=== PATIENT | male | born 1970 | race Caucasian/White ===

== ENCOUNTER 2018-03-18 11:01 | Emergency (ER) | payer OTHER ==
[2018-03-18 11:23] VITALS: BP 154/100; PULSE 105; TEMP 98; BMI 33.6
[2018-03-18] MEDS ORDERED: KETOROLAC TROMETHAMINE 60 MG/2 ML VIAL IM ONE (11:40)
--- NOTE | 2018-03-18 11:40 | PDOC ---
History of Present Illness - General Chief Complaint: Injury Stated Complaint: SHOULDER PAIN Time Seen by Provider: 03/18/18 11:25 History Source: Patient Exam Limitations: No Limitations - History of Present Illness Initial Comments: CHIEF COMPLAINT: 47 y/o male c/o left shoulder pain x 4 days. 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 His left shoulder had to hold up his entire body weight. He has been icing it. He denies numbness/tingling, head trauma, LOC and all other symptoms. He states it's hard to put his shirt on. Vital signs on arrival are notable for pulse of 105. REVIEW OF SYSTEMS: GENERAL/CONSTITUTIONAL: No fever/chills. No weakness. No weight change. MUSCULOSKELETAL: +left shoulder pain. No neck or back pain. SKIN: No rash or easy bruising. NEUROLOGIC: No headache, vertigo, loss of consciousness, or loss of sensation. PHYSICAL EXAM: VITAL_SIGNS: within normal limits GENERAL_APPEARANCE: alert, cooperative, no obvious discomfort. MENTAL_STATUS: speech clear, oriented X 3, responds appropriately to questions. NEURO: motor intact and sensory intact in injured extremity. EXTREMITIES: good pulse in injured extremity. No obvious deformities of left shoulder and clavicle. No tenting of left clavicle. TTP of left AC joint. Patient cannot abduct his left arm > 75 degrees. Cannot move left hand above shoulder or behind back. SKIN: warm, dry, good color. Past History - Past Medical History Allergies/Adverse Reactions: Allergies Allergy/AdvReac Type Severity Reaction Status Date / Time No Known Allergies Allergy Verified 03/18/18 11:20 Home Medications: Ambulatory Orders Naproxen [Naprosyn -] 500 mg PO BID #30 tablet 08/30/13 No Home Medications 0 dose .ROUTE UTDICT 08/30/13 Ibuprofen 600 mg PO TID #20 tablet 03/18/18 COPD: No CHF: No HTN: Yes Hypercholesterolemia: Yes - Suicide/Smoking/Psychosocial Hx Smoking History: Never smoked Have you smoked in the past 12 months: No Information on smoking cessation initiated: No Hx Alcohol Use: No Drug/Substance Use Hx: No Substance Use Type: None *Physical Exam - Vital Signs Last Vital Signs Temp Pulse Resp BP Pulse Ox 98 F 105 H 18 154/100 100 03/18/18 11:20 03/18/18 11:20 03/18/18 11:20 03/18/18 11:20 03/18/18 11:20 Medical Decision Making - Medical Decision Making A/P: 47 y/o male with left rotator cuff injury. Plan is as follows: 1. IM toradol Patient will be discharged to home with rx for ibuprofen and supportive care instructions. Instructed him to call Dr. Zavala on Monday to make follow up appointment and walk his left hand up a wall 4-5 times per day to prevent frozen shoulder. The patient verbalizes understanding of all instructions, has no further questions and is awaiting discharge. *DC/Admit/Observation/Transfer Diagnosis at time of Disposition: Rotator cuff strain Qualifiers: Encounter type: initial encounter Laterality: left Qualified Code(s): S46.012A - Strain of muscle(s) and tendon(s) of the rotator cuff of left shoulder, initial encounter - Discharge Dispostion Disposition: HOME Condition at time of disposition: Good - Referrals Referrals: David Zavala MD [Staff Physician] - (Call Monday to schedule follow up appointment) - Patient Instructions Printed Discharge Instructions: DI for Rotator Cuff Injury, How To Perform RICE (Rest, Ice, Compress, Elevate) Additional Instructions: Discharge Instructions: -You have a rotator cuff injury -Please alternate between ice and a heating pad -A prescription for pain medication has been sent to your pharmacy -Please call Dr. Zavala on Monday and schedule a follow up appointment -Walk your left hand up a wall 4-5 times a day to prevent frozen shoulder Instrucciones de descarga: -Usted tiene jerica lesin en el manguito rotador -Por favor alterne entre el hielo y jerica almohadilla trmica. -Jerica receta para medicamentos para el dolor melchor sido enviada a [place] farmacia -Por favor, llame al Dr. Zavala el kathe y programe jerica min de seguimiento - Camine beckwith mano [place] por jerica pared 4-5 veces al da para evitar el hombro congelado Print Language: LUXEMBOURGER - Post Discharge Activity Forms/Work/School Notes: Back to Work
[2018-03-18] MEDS ORDERED: KETOROLAC TROMETHAMINE 60 MG/2 ML VIAL ONE (11:43)
== END 2018-03-18 12:01 | disposition home or self-care (01) ==
LOC: JERFT 11:01
PROC: 3E0233Z Introduction of Anti-inflammatory into Muscle, Percutaneous Approach (ICD-10-PCS; principal; 2018-03-18)
DX: S46.012A Strain of muscle(s) and tendon(s) of the rotator cuff of left shoulder, initial encounter (principal); W14.XXXA Fall from tree, initial encounter; Y93.H2 Activity, gardening and landscaping; Y92.89 Other specified places as the place of occurrence of the external cause; Y99.0 Civilian activity done for income or pay
CPT/HCPCS: 99281-25

== ENCOUNTER 2021-08-11 08:41 | Day surgery (SDC) | payer BC, OTHER ==
[2021-08-10 09:00] VITALS: BMI 32.5
[2021-08-11] MEDS ORDERED: BSS (NA/CA/MG/K) BALANCED SALT SOLUTION OPHTH SOLN 15 ML BOTTLE ONE (11:11)
[2021-08-11] MEDS ORDERED: LIDOCAINE HCL 2% JELLY 10 ML CARTRIDGE ONE (11:12)
[2021-08-11] MEDS ORDERED: LIDOCAINE 1%/EPI 1:100000 (20 ML MULTI DOSE VIAL) ONE (11:12)
[2021-08-11] MEDS ORDERED: MIDAZOLAM HCL 2 MG/2 ML SINGLE DOSE VIAL ONE ×2 (12:14→12:35)
[2021-08-11] MEDS ORDERED: BACITRACIN/POLYMYXIN OPH OINT 3.5 GM TUBE ONE (12:36)
[2021-08-11] MEDS ORDERED: ERYTHROMYCIN 0.5% OPHTHALMIC OINTMENT 3.5 GM TUBE ONE (12:36)
[2021-08-11 13:11] VITALS: PULSE 92; TEMP 99
[2021-08-11 14:07] VITALS: BP 141/89
== END 2021-08-11 14:00 | disposition home or self-care (01) ==
LOC: FASU 08:41
PROVIDERS: ATTEND Ophthalmology
PROC: 08U107Z Supplement of Left Eye with Autologous Tissue Substitute, Open Approach (ICD-10-PCS; principal; 2021-08-11 12:17)
DX: H11.002 Unspecified pterygium of left eye (principal)
CPT/HCPCS: 88304-TC